=== PATIENT | female | born 1975 | race Hispanic/Latino ===

== ENCOUNTER 2016-12-31 04:17 | Emergency (ER) | payer MEDICAID, OTHER ==
[2016-12-31 04:17] VITALS: BMI 23.6
[2016-12-31 04:36] VITALS: RESP 18
[2016-12-31] MEDS ORDERED: Albuterol-Ipratrop 3 mg / 0.5 (3 ml) UD INH STA (04:37)
[2016-12-31] MEDS ORDERED: Albuterol-Ipratrop 3 mg / 0.5 (3 ml) UD ONE (04:42)
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
[2016-12-31 05:32] VITALS: BP 101/63; PULSE 84; TEMP 97.9
[2016-12-31 05:54] VITALS: O2SAT 98
== END 2016-12-31 05:56 | disposition home or self-care (01) ==
LOC: C.ER 04:17
DX: J06.9 Acute upper respiratory infection, unspecified (principal); Z87.891 Personal history of nicotine dependence

== ENCOUNTER 2017-01-05 02:40 | Emergency (ER) | payer SELFPAY ==
[2017-01-05 02:40] VITALS: BMI 23.6
[2017-01-05] MEDS ORDERED: Naproxen 550 mg Tab PO STA (03:09)
[2017-01-05] MEDS ORDERED: Albuterol-Ipratrop 3 mg / 0.5 (3 ml) UD INH STA (03:10)
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
[2017-01-05] MEDS ORDERED: Albuterol-Ipratrop 3 mg / 0.5 (3 ml) UD ONE (03:20)
[2017-01-05] MEDS ORDERED: Naproxen 550 mg Tab PO ONE (03:20)
[2017-01-05 04:34] VITALS: BP 101/60; PULSE 69; RESP 16; TEMP 97.7; O2SAT 98
== END 2017-01-05 04:34 | disposition home or self-care (01) ==
LOC: C.ER 02:40
DX: M54.42 Lumbago with sciatica, left side (principal); J06.9 Acute upper respiratory infection, unspecified; Z72.0 Tobacco use